=== PATIENT | male | born 1945 | race Caucasian/White ===

== ENCOUNTER 2018-10-26 09:01 | Observation (INO) | payer OTHER ==
[~2018-10-26 09:01] MED LIST: BACITRACIN IRRIGATION/NS 50,000 UNITS/1,000 ML BTL IRR ONE; DIAZEPAM 5 MG TAB PO ONE; NS 1,000 ML IV ONE; ceFAZolin 2 GM/DEXTROSE 100 ML IV ONE; diphenhydrAMINE 25 MG CAP PO ONE
[2018-10-26 09:34] LABS: PLATELET COUNT 188 10^3/uL (150-400)
[2018-10-26 10:03] LABS: INR 0.97 (0.83-1.16); PROTIME(PATIENT) 12.5 SEC (12.0-15.0)
--- NOTE | 2018-10-26 10:17 | PDGENHP ---
History & Physical Chief Complaint: fatigue Relevant Physical Exam: s1s2 rrr cta ao3 Cardiorespiratory Assessment: sinus bradycardia with HR in 20s and multiple pauses up to 4.7 s. Fatigue. Class IIA indication for pacemaker
--- NOTE | 2018-10-26 10:44 | CPEKG ---
Test Reason : OPEN Blood Pressure : / mmHG Vent. Rate : 058 BPM Atrial Rate : 057 BPM P-R Int : 179 ms QRS Dur : 109 ms QT Int : 448 ms P-R-T Axes : 068 -73 -19 degrees QTc Int : 441 ms Sinus rhythm Markedly posterior QRS axis Borderline T abnormalities, inferior leads Confirmed by Saad Dorsey ([id number]) on 10/26/2018 10:44:12 AM Referred By: Indra Diane Confirmed By:Saad Dorsey
[2018-10-26] MEDS ORDERED: IOPAMIDOL (ISOVUE-300) 100 ML BTL ONE (11:08)
[2018-10-26] MEDS ORDERED: LIDOCAINE 1% 300 MG/30 ML SDV ONE (11:08)
[2018-10-26] MEDS ORDERED: BUPIVACAINE 0.5% 30 ML SDV ONE (11:08)
--- NOTE | 2018-10-26 11:12 | PDANEPAE ---
ANE Past Medical History - Pulmonary History Hx Sleep Apnea: No ANE Review of Systems Review of Systems: ANE Patient History - Allergies Allergies/Adverse Reactions: Penicillins Allergy (Verified 10/19/18 10:25) Hives - Home Medications Home Medications: Cholecalciferol Vit D3 [Vitamin D3 2000 units tab (OTC)] 4,000 units PO DAILY [Last Taken Unknown] Herbals/Supplements -Info Only 1 each PO DAILY 10/19/18 [Last Taken Unknown] Levothyroxine [Synthroid 125 mcg (*)] 125 mcg PO DAILY06 10/19/18 [Last Taken Unknown] Sildenafil Citrate [Viagra] 100 mg PO DAILY PRN 10/19/18 [Last Taken Unknown] Tamsulosin HCl [Flomax 0.4 MG (*)] 0.8 mg PO DAILY 10/19/18 [Last Taken Unknown] - Smoking Hx Smoking Status: Never smoked ANE Labs/Vital Signs - Labs Result Diagrams: 10/26/18 09:15 10/26/18 09:15 - Vital Signs Height: 180.34 cm Weight: 81.647 kg ANE Physical Exam - Airway Neck exam: FROM Mallampati Score: Class 2 Mouth exam: normal dental/mouth exam - Pulmonary Pulmonary: no respiratory distress - Cardiovascular Cardiovascular: regular rate and rhythym - ASA Status ASA Status: II ANE Anesthesia Plan Anesthesia Plan: GA w LMA
[2018-10-26] MEDS ORDERED: fentaNYL 100 MCG/2 ML INJ ONE (11:22)
[2018-10-26] MEDS ORDERED: LIDOCAINE 2% 100 MG/5 ML SYR ONE (11:23)
[2018-10-26] MEDS ORDERED: PROPOFOL 200 MG/20 ML VIAL ONE (11:23)
[2018-10-26] MEDS ORDERED: DEXAMETHASONE 4 MG/ML VIAL ONE (11:23)
[2018-10-26] MEDS ORDERED: ONDANSETRON 4 MG/2 ML VIAL ONE (11:23)
[2018-10-26] MEDS ORDERED: ACETAMINOPHEN 500 MG TAB PO PRN (12:21)
[2018-10-26] MEDS ORDERED: fentaNYL 100 MCG/2 ML INJ IVP PRN (12:21)
[2018-10-26] MEDS ORDERED: NALOXONE HCL 0.4 MG/ML INJ IVP PRN (12:21)
[2018-10-26] MEDS ORDERED: ALBUTEROL 3 ML DEYVIAL IH PRN (12:21)
[2018-10-26] MEDS ORDERED: ONDANSETRON 4 MG/2 ML VIAL IVP PRN (12:21)
--- NOTE | 2018-10-26 13:30 | POSTANESTH ---
Post Anesthetic Evaluation Cardiovascular Status: Similar to Pre-Op Cond Respiratory Status: Similar to Pre-op Cond. Level of Consciousness/Mental Status: Alert and Oriented Pain Control: Adequate, Prn Tx Ordered Nausea/Vomiting Control: Adequate, Prn Tx Ordered Complications Possibly Related to Anesthesia: None Noted
--- NOTE | 2018-10-26 15:56 | EPPROC ---
Electrophysiology Procedure Note: PROCEDURE PERFORMED: 1. Implantation of an A/V Pacemaker 2. Subclavian vein angiography 3. Fluoroscopy INDICATION: Bradycardia, fatigue, 4.7 s pauses PROCEDURE NOTE: Patient presented to the cardiac catheterization laboratory in a fasting, post absorptive state . Dr. Mcclain administered sedation. The left infraclavicular area was prepped and draped in the usual sterile fashion. Lidocaine plus bupivacaine was used for local anesthesia. Left subclavian venography was performed by injection of iodinated contrast into the left antecubital vein. This was done to assure patency of the vein and also to assess for any anatomical aberrations. Using a combination of blunt and sharp dissection and electrocautery, the dissection was carried down to the prepectoral fascia. A pocket was made in this anatomical plane. All bleeding was controlled with electrocautery. The pocket was packed with gauze soaked in antibiotic solution. Fluoroscopy was utilized during the entire procedure for venous access and placement of the leads. Using a direct stick technique the left extrathoracic axillary vein was accessed with 2 sticks using the modified Seldinger technique. Placement of the guidewires into the venous system was confirmed by low-pressure blood return and also by visualizing the guidewires advancing into the inferior vena cava. A purse string suture was applied around the guidewires. Two # 6 Prydeinig sheaths were advanced under fluoroscopic guidance over the guidewire. An active fixation ventricular lead was advanced into the right ventricular apex and screwed in place. An active fixation atrial lead was advanced into the right atrial appendage and screwed in place. The peel away sheaths were removed. Pacing thresholds, sensing parameters and lead impedances were measured. There was no diaphragmatic stimulation at maximum output. The leads were sutured to the prepectoral fascia with 3 nonabsorbable sutures each. The pocket was again inspected for any bleeding. The leads were attached to the pacemaker securely. The pacemaker was inserted into the pocket and secured in place with a nonabsorbable suture. Fluoroscopy was performed in and POLISH planes to verify right-sided placement of the leads. Also fluoroscopy of the pacemaker pocket was performed. The pacemaker pocket was closed in 3 layers with absorbable monocryl sutures and elyse. Appropriate dressing was applied. The patient left the cardiac catheterization laboratory in stable condition. Serial Numbers: 1. Device: Biotronik Edora 8 DRT SN [id number] 2. Atrial Lead: Biotronik Solia S53 SN [id number] 3. Ventricular Lead: Biotronik Solia S 60 SN [id number] Stimulation Thresholds & Impedance Measurements: 1. Atrial Lead P2.1 mV 0.7 V 0.4 ms 528 ohm 2. Ventricular Lead R 10.7 mV 0.7 V 733 ohm Kota Pacing Parameters 1. Pacing mode: DDDR 2. Lower rate: 40ppm 3. Upper tracking rate: 130 ppm Upper sensor rate: 130 ppm Patient Problems: Problems Problem Status Onset Bradycardia Acute
[2018-10-26] MEDS ORDERED: TAMSULOSIN HCL 0.4 MG CAP PO SCH (18:00)
[2018-10-27 04:16] LABS: PLATELET COUNT 171 10^3/uL (150-400)
[2018-10-27] MEDS ORDERED: LEVOTHYROXINE 125 MCG TAB PO SCH (06:00)
[2018-10-27 07:09] VITALS: BP 135/70
--- NOTE | 2018-10-27 07:13 | CPEKG ---
Test Reason : OPEN Blood Pressure : / mmHG Vent. Rate : 046 BPM Atrial Rate : 045 BPM P-R Int : 185 ms QRS Dur : 109 ms QT Int : 503 ms P-R-T Axes : 064 002 -38 degrees QTc Int : 440 ms Sinus bradycardia Nonspecific T abnormalities, inferior leads Confirmed by Saad Dorsey ([id number]) on 10/27/2018 7:12:50 AM Referred By: Indra Diane Confirmed By:Saad Dorsey
[2018-10-27] MEDS ORDERED: CHOLECALCIFEROL VIT D3 2,000 UNITS TAB/CAP PO SCH (09:00)
--- NOTE | 2018-10-27 10:27 | ASDISCHSUM ---
Discharge Information Plan Status:Home with No Needs Medically Cleared to Leave:10/27/2018 Discharge Date:10/27/2018 CM D/C Disposition:Home, Routine, Self-Care ADT D/C Disposition:Home, Routine, Self-Care Projected Discharge Date:10/27/2018 Transportation at D/C: Discharge Delay Reason: Follow-Up Date:10/27/2018 Discharge Slot: Final Diagnosis: Placement Information Patient Contact Information Contact Name:FILIBERTO Relationship: Address:[address] Work Phone: City:[facility] Phone: State/Zip Code:[place] [address] Email: Financial Information Financial Class:Medicare Advantage Plans Primary Plan Desc:[employer] MEDICARE ADV Primary Plan Number:[id number] Secondary Plan Desc: Secondary Plan Number: Assessment Information LACE LACE Length of stay for Answers: Less than 1 day current admission Acuity / Level of Answers: No Care: Did the patient have an inpatient admission? # of Emergency department Answers: 0 visits in the last 6 months Date Signed: 10/27/2018 10:26 AM Electronically Signed By:Sara Brito RN Intervention Information
--- NOTE | 2018-10-27 16:40 | CPEKG ---
Test Reason : OPEN Blood Pressure : / mmHG Vent. Rate : 050 BPM Atrial Rate : 050 BPM P-R Int : 144 ms QRS Dur : 116 ms QT Int : 463 ms P-R-T Axes : 014 -34 006 degrees QTc Int : 423 ms Atrial-paced rhythm Nonspecific intraventricular conduction delay Lateral infarct, age indeterminate Confirmed by Saad Dorsey ([id number]) on 10/27/2018 4:39:32 PM Referred By: Indra Diane Confirmed By:Saad Dorsey
== END 2018-10-27 10:50 | disposition home or self-care (01) ==
LOC: FCATH 09:01 → F2W 12:31
PROVIDERS: ADMIT Internal Medicine Cardiovascular Disease; ATTEND Internal Medicine Cardiovascular Disease
DX: R00.1 Bradycardia, unspecified (principal); R53.83 Other fatigue; Z88.0 Allergy status to penicillin
CPT/HCPCS: 33208; 71045; 71046; 93005; C1785; C1898; G0378; J0690; J1100; J2001; J2405; J2704; J3010; Q9967